=== PATIENT | female | born 2000 | race African-American/Black ===

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

== ENCOUNTER 2023-07-14 14:31 | Outpatient (CLI) | payer OTHER ==
[~2023-07-14 14:31] MED LIST: Iopamidol 370 76% 100 ML VIAL ONE
== END 2023-07-14 14:32 | disposition home or self-care (01) ==
LOC: BICCT 14:31
PROVIDERS: ATTEND Otolaryngology Plastic Surgery within the Head & Neck
DX: J34.1 Cyst and mucocele of nose and nasal sinus (principal)
CPT/HCPCS: 70488

== ENCOUNTER 2023-11-09 10:57 | Emergency (ER) | payer OTHER ==
[2023-11-09 12:17] LABS: SARS-CoV-2 NAA Rapid Test Not Detected (NotDetected)
== END 2023-11-09 12:26 | disposition home or self-care (01) ==
LOC: ERS 10:57
DX: J02.9 Acute pharyngitis, unspecified (principal)
CPT/HCPCS: 87081; 87430; 99283

== ENCOUNTER 2024-03-29 18:26 | Emergency (ER) | payer OTHER, SELFPAY ==
[2024-03-29 19:23] LABS: Pregnancy Test - Urine (BHCG) Negative (Negative); Pregu Control Background? CLEAR/WHITE (CLR/WHITE); Pregu Control Bar Appear? YES (CONTROL BAR); Specific Gravity 1.017 (1.002-1.036)
[2024-04-02 12:38] LABS: QuantiFERON-TB Gold Plus Negative (Negative)
== END 2024-03-29 21:50 | disposition home or self-care (01) ==
LOC: ERS 18:26
DX: R05.9 Cough, unspecified (principal)
CPT/HCPCS: 36415; 71045; 81025; 86480

== ENCOUNTER 2024-08-29 12:43 | Emergency (ER) | payer OTHER ==
[2024-08-29] MEDS ORDERED: Ondansetron ODT 4 MG TAB ONE ×2 (14:26→14:33)
[2024-08-29] MEDS ORDERED: Ketorolac Tromethamine 30 MG (1 mL) VIAL ONE (14:26)
== END 2024-08-29 14:51 | disposition home or self-care (01) ==
LOC: ERS 12:43
DX: S16.1XXA Strain of muscle, fascia and tendon at neck level, initial encounter (principal); S13.4XXA Sprain of ligaments of cervical spine, initial encounter; R11.0 Nausea; V43.52XA Car driver injured in collision with other type car in traffic accident, initial encounter
CPT/HCPCS: 96372; 99282; J1885; Q0162